=== PATIENT | male | born 1980 | race African-American/Black ===

== ENCOUNTER 2020-07-16 12:54 | Emergency (ER) | payer MEDICAID ==
[~2020-07-16] VITALS: Ht 182.9 cm; Wt 136.1 kg
[2020-07-16] MEDS ORDERED: FUROSEMIDE 20 MG TAB PO ONE (17:45)
[2020-07-16 17:54] VITALS: BP 122/79
== END 2020-07-16 18:05 | disposition home or self-care (01) ==
LOC: ER 12:54 → EDBD 12:54 → ER 18:05
DX: R60.0 Localized edema (principal); K21.9 Gastro-esophageal reflux disease without esophagitis; I10 Essential (primary) hypertension
CPT/HCPCS: 93970

== ENCOUNTER 2020-12-27 15:11 | Emergency (ER) | payer MEDICAID ==
[~2020-12-27] VITALS: Ht 167.6 cm; Wt 181.4 kg
[2020-12-27 16:09] VITALS: BP 145/75
[2020-12-27] MEDS ORDERED: NEOMYCIN-BACITRACIN-POLYM 15GM TOP OINT TOP ONE (20:01)
[2020-12-27] MEDS ORDERED: NEOMYCIN-BACITRACIN-POLYM UNITDOSE PKG TOP OINT TOP ONE (20:15)
== END 2020-12-27 20:40 | disposition home or self-care (01) ==
LOC: ER 15:11
DX: S93.401A Sprain of unspecified ligament of right ankle, initial encounter (principal); E66.01 Morbid (severe) obesity due to excess calories; Z68.44 Body mass index [BMI] 60.0-69.9, adult; I10 Essential (primary) hypertension; K21.9 Gastro-esophageal reflux disease without esophagitis; X58.XXXA Exposure to other specified factors, initial encounter; Y93.89 Activity, other specified; Y92.89 Other specified places as the place of occurrence of the external cause; Y99.8 Other external cause status
CPT/HCPCS: 73610

== ENCOUNTER 2021-07-24 18:03 | Inpatient (IN) | payer MEDICAID ==
[~2021-07-24] VITALS: Ht 182.9 cm; Wt 146.5 kg
[2021-07-24 20:34] LABS: Basophils # (auto) 0 10 ^3/uL (0-0.2); Basophils % (auto) 0.3 % (0.0-2.0); Hematocrit 24.5 % (41.0-53.0); Hemoglobin 8.1 g/dL (13.5-17.5); Mean Corpuscular Hgb Conc. 33.2 g/dL (32.0-36.0); Monocytes # (auto) 0.7 10 ^3/uL (0-1.3); Red Cell Distribution Width 15.1 % (11.8-14.3)
[2021-07-24 20:36] LABS: Eosinophils # (auto) 1.5 10 ^3/uL (0-0.8); Eosinophils % (auto) 14.7 % (0.0-7.0); Lymphocytes # (auto) 1.3 10 ^3/uL (0.4-5.4); Lymphocytes % (auto) 12.6 % (10.0-50.0); Mean Corpuscular Hemoglobin 26.5 pg (28.0-32.0); Mean Corpuscular Volume 79.7 fL (80.0-100.0); Monocytes % (auto) 6.6 % (0.0-12.0); Neutrophils # (auto) 6.5 10 ^3/uL (1.6-8.6); Neutrophils % (auto) 65.8 % (37.0-80.0); Nucleated Red Blood Cells % 0.2 %; Red Blood Cells 3.07 10^6/uL (4.5-5.90); White Blood Cell 9.9 10^3/uL (4.4-10.8)
[2021-07-24 20:55] LABS: Albumin 2.8 g/dL (3.4-5.0); Calcium 8.7 mg/dL (8.5-10.1); Magnesium 2.3 mg/dL (1.6-2.6)
[2021-07-24 20:58] LABS: BUN/Creatinine Ratio 10.6; Bilirubin, Total 0.3 mg/dL (0.2-1.0); Total Protein 11.7 g/dL (6.4-8.2)
[2021-07-24] MEDS ORDERED: SODIUM CHLORIDE 0.9% 1,000 ML IV ONE (21:15)
[2021-07-24] MEDS ORDERED: MORPHINE SULFATE INJ 2 MG/ml SYRG IV PRN ×2 (23:00)
[2021-07-24] MEDS ORDERED: HYDROcodone-ACET 5/325MG TAB PO PRN (23:00)
[2021-07-24] MEDS ORDERED: NOREPINEPHRINE 8 MG/250ML KIT 250 ML IV SCH (23:00)
[2021-07-24] MEDS ORDERED: ACETAMINOPHEN 325 MG TAB PO PRN ×2 (23:00)
[2021-07-24] MEDS ORDERED: NITROGLYCERIN 0.4 MG SL TAB SL PRN (23:00)
[2021-07-25] MEDS: SODIUM CHLORIDE 0.9% 1,000 ML IV SCH ×6 (01:00→23:53)
[2021-07-25] MEDS: ENOXAPARIN SOD 40 MG/0.4 ML SYRINGE SC SCH ×2 (10:15→22:40)
[2021-07-25] MEDS: PIPERACILLIN-TAZOB 3.375GM 100 ML IV SCH ×2 (12:39→17:49)
[2021-07-25 14:07] LABS: Hematocrit 27.5 % (41.0-53.0); Hemoglobin 9.2 g/dL (13.5-17.5); Mean Corpuscular Hemoglobin 26.8 pg (28.0-32.0); Mean Corpuscular Hgb Conc. 33.3 g/dL (32.0-36.0); Mean Corpuscular Volume 80.7 fL (80.0-100.0); Red Blood Cells 3.41 10^6/uL (4.5-5.90); Red Cell Distribution Width 15.3 % (11.8-14.3); White Blood Cell 10.1 10^3/uL (4.4-10.8)
[2021-07-25 14:26] LABS: Albumin 3.1 g/dL (3.4-5.0); BUN/Creatinine Ratio 14.7; Calcium 9.7 mg/dL (8.5-10.1); Potassium 5.1 mmol/L (3.5-5.1)
[2021-07-25 14:37] LABS: Bilirubin, Total 0.4 mg/dL (0.2-1.0); Total Protein 12.7 g/dL (6.4-8.2)
[2021-07-25 15:00] LABS: Band Neutrophils % (manual) 0; Basophils % (manual) 0 (0.0-2.0); Blast Cells 0; Metamyelocytes % 0; Myelocytes % 0; Promyelocytes % 0; Reactive Lymphocytes 0
[2021-07-25] MEDS ORDERED: SODIUM CHLORIDE 0.9% 1,000 ML IV SCH (15:15)
[2021-07-25 16:31] LABS: Eosinophils % (manual) 17 (0-7); Lymphocytes % (manual) 10 (10.0-50.0); Monocytes % (manual) 4 (0-12)
[2021-07-25 16:46] VITALS: BP 103/61
[2021-07-25 17:50] VITALS: BP 103/61
[2021-07-25 20:30] VITALS: BP 103/61
[2021-07-25 22:00] VITALS: BP 99/46
[2021-07-26] MEDS: PIPERACILLIN-TAZOB 3.375GM 100 ML IV SCH ×5 (00:03→23:28)
[2021-07-26] MEDS: SODIUM CHLORIDE 0.9% 1,000 ML IV SCH ×2 (07:30→15:30)
[2021-07-26 07:56] LABS: BUN/Creatinine Ratio 20.6; Calcium 9.6 mg/dL (8.5-10.1); Phosphorus 5.5 mg/dL (2.5-4.90)
[2021-07-26 09:00] VITALS: BP 132/73
[2021-07-26] MEDS: ZINC SULFATE 220mg CAP or TAB PO SCH (11:25)
[2021-07-26] MEDS: ASCORBIC ACID 1,000 MG TAB PO SCH (11:26)
[2021-07-26] MEDS: ENOXAPARIN SOD 40 MG/0.4 ML SYRINGE SC SCH ×2 (11:27→22:16)
[2021-07-26] MEDS: PANTOPRAZOLE 40 MG/10 ML VIAL INJ IV SCH (12:23)
[2021-07-26] MEDS: CHOLECALCIFEROL (VITD3) 2,000 UNIT CAP/TAB PO SCH (12:24)
[2021-07-26 22:00] VITALS: BP 96/41
[2021-07-27] MEDS: SODIUM CHLORIDE 0.9% 1,000 ML IV SCH ×4 (00:07→23:30)
[2021-07-27 04:55] VITALS: BP 87/41
[2021-07-27] MEDS: PIPERACILLIN-TAZOB 3.375GM 100 ML IV SCH ×4 (05:38→23:43)
[2021-07-27 07:04] LABS: % Iron Saturation 26.5 % (20-55)
[2021-07-27 07:09] LABS: Ferritin 527.7 ng/mL (10-322)
[2021-07-27 09:00] VITALS: BP 132/57
[2021-07-27 09:11] LABS: Basophils # (auto) 0.1 10 ^3/uL (0-0.2); Nucleated Red Blood Cells % 0.1 %
[2021-07-27 09:13] LABS: Basophils % (auto) 0.9 % (0.0-2.0); Eosinophils # (auto) 1.2 10 ^3/uL (0-0.8); Eosinophils % (auto) 14.6 % (0.0-7.0); Hematocrit 25.2 % (41.0-53.0); Hemoglobin 8.2 g/dL (13.5-17.5); Lymphocytes # (auto) 1.2 10 ^3/uL (0.4-5.4); Lymphocytes % (auto) 13.8 % (10.0-50.0); Mean Corpuscular Hemoglobin 26.4 pg (28.0-32.0); Mean Corpuscular Hgb Conc. 32.4 g/dL (32.0-36.0); Mean Corpuscular Volume 81.4 fL (80.0-100.0); Monocytes # (auto) 0.6 10 ^3/uL (0-1.3); Monocytes % (auto) 7.7 % (0.0-12.0); Neutrophils # (auto) 5.3 10 ^3/uL (1.6-8.6); Red Blood Cells 3.09 10^6/uL (4.5-5.90); Red Cell Distribution Width 15.2 % (11.8-14.3); White Blood Cell 8.4 10^3/uL (4.4-10.8)
[2021-07-27] MEDS: ENOXAPARIN SOD 40 MG/0.4 ML SYRINGE SC SCH ×2 (09:54→22:28)
[2021-07-27] MEDS: PANTOPRAZOLE 40 MG/10 ML VIAL INJ IV SCH (09:54)
[2021-07-27] MEDS: ZINC SULFATE 220mg CAP or TAB PO SCH (09:55)
[2021-07-27] MEDS: CHOLECALCIFEROL (VITD3) 2,000 UNIT CAP/TAB PO SCH (09:55)
[2021-07-27] MEDS: ASCORBIC ACID 1,000 MG TAB PO SCH (09:56)
[2021-07-27] MEDS: ASPirin 81 mg TAB PO SCH (09:56)
[2021-07-27 13:00] VITALS: BP 143/85
[2021-07-27 16:57] LABS: BUN/Creatinine Ratio 29.9; Potassium 4.8 mmol/L (3.5-5.1)
[2021-07-27 17:00] VITALS: BP 146/91
[2021-07-27 22:00] VITALS: BP 133/71
[2021-07-28 05:00] VITALS: BP 126/70
[2021-07-28] MEDS: PIPERACILLIN-TAZOB 3.375GM 100 ML IV SCH ×3 (05:54→18:23)
[2021-07-28] MEDS: SODIUM CHLORIDE 0.9% 1,000 ML IV SCH (06:27)
[2021-07-28 07:28] LABS: Chloride 113 mmol/L (98-107); Potassium 5.1 mmol/L (3.5-5.1); Sodium 139 mmol/L (136-145)
[2021-07-28 07:35] LABS: Alanine Aminotransferase 21 U/L (16-61); Albumin 2.6 g/dL (3.4-5.0); Alkaline Phosphatase 43 U/L (45-117); Anion Gap 6 (5-15); Aspartate Aminotransferase 15 U/L (15-37); BUN/Creatinine Ratio 34.7; Bilirubin, Direct < 0.1 mg/dL (0-0.2); Bilirubin, Total 0.2 mg/dL (0.2-1.0); Blood Urea Nitrogen 60 mg/dL (7-18); Calcium 9.2 mg/dL (8.5-10.1); Carbon Dioxide 20 mmol/L (21-32); Creatine Kinase IFCC 56 U/L (39-308); GFR African American 56 mL/min; GFR Non-African American 46 mL/min; Glucose 104 mg/dL (74-106); Phosphorus 3.6 mg/dL (2.5-4.90); Total Protein 10.9 g/dL (6.4-8.2)
[2021-07-28 08:17] LABS: Uric Acid 11.9 mg/dL (3.5-7.2)
[2021-07-28 09:00] VITALS: BP 140/92
[2021-07-28] MEDS: ASCORBIC ACID 1,000 MG TAB PO SCH (10:00)
[2021-07-28] MEDS: ASPirin 81 mg TAB PO SCH (10:00)
[2021-07-28] MEDS: PANTOPRAZOLE 40 MG/10 ML VIAL INJ IV SCH (10:00)
[2021-07-28] MEDS: ENOXAPARIN SOD 40 MG/0.4 ML SYRINGE SC SCH ×2 (10:00→21:55)
[2021-07-28] MEDS: CHOLECALCIFEROL (VITD3) 2,000 UNIT CAP/TAB PO SCH (10:00)
[2021-07-28] MEDS: ZINC SULFATE 220mg CAP or TAB PO SCH (10:00)
[2021-07-28 13:00] VITALS: BP 135/95
[2021-07-28 13:06] LABS: Immunoglobulin G, Serum 4805 mg/dL (603-1613)
[2021-07-28] MEDS: SOD CHL 0.45% 1,000 ML IV SCH (16:15)
[2021-07-28 16:45] VITALS: BP 140/85
[2021-07-28 22:00] VITALS: BP 156/88
[2021-07-29] MEDS: PIPERACILLIN-TAZOB 3.375GM 100 ML IV SCH ×4 (00:07→18:24)
[2021-07-29] MEDS: SOD CHL 0.45% 1,000 ML IV SCH ×2 (01:18→09:24)
[2021-07-29 05:00] VITALS: BP 111/58
[2021-07-29 09:03] VITALS: BP 147/87
[2021-07-29] MEDS: ASCORBIC ACID 1,000 MG TAB PO SCH (09:23)
[2021-07-29] MEDS: ASPirin 81 mg TAB PO SCH (09:23)
[2021-07-29] MEDS: PANTOPRAZOLE 40 MG/10 ML VIAL INJ IV SCH (09:23)
[2021-07-29] MEDS: ZINC SULFATE 220mg CAP or TAB PO SCH (09:23)
[2021-07-29] MEDS: CHOLECALCIFEROL (VITD3) 2,000 UNIT CAP/TAB PO SCH (09:24)
[2021-07-29] MEDS: ENOXAPARIN SOD 40 MG/0.4 ML SYRINGE SC SCH ×2 (09:24→21:21)
[2021-07-29 17:36] VITALS: BP 134/73
[2021-07-29 20:00] VITALS: BP 130/94
[2021-07-29 22:00] VITALS: BP 130/94
[2021-07-30] MEDS: PIPERACILLIN-TAZOB 3.375GM 100 ML IV SCH ×4 (00:11→18:15)
[2021-07-30] MEDS: SOD CHL 0.45% 1,000 ML IV SCH ×2 (00:12→09:38)
[2021-07-30 05:00] VITALS: BP 102/57
[2021-07-30 08:15] VITALS: BP 135/98
[2021-07-30 09:00] VITALS: BP 135/98
[2021-07-30 09:40] LABS: Basophils # (auto) 0.1 10 ^3/uL (0-0.2); Hemoglobin 8.4 g/dL (13.5-17.5); Monocytes # (auto) 0.6 10 ^3/uL (0-1.3)
[2021-07-30] MEDS: ZINC SULFATE 220mg CAP or TAB PO SCH (09:40)
[2021-07-30] MEDS: CHOLECALCIFEROL (VITD3) 2,000 UNIT CAP/TAB PO SCH (09:40)
[2021-07-30] MEDS: ASPirin 81 mg TAB PO SCH (09:40)
[2021-07-30] MEDS: PANTOPRAZOLE 40 MG/10 ML VIAL INJ IV SCH (09:40)
[2021-07-30] MEDS: ASCORBIC ACID 1,000 MG TAB PO SCH (09:40)
[2021-07-30] MEDS: ENOXAPARIN SOD 40 MG/0.4 ML SYRINGE SC SCH ×2 (09:41→21:43)
[2021-07-30 09:42] LABS: Basophils % (auto) 1.1 % (0.0-2.0); Eosinophils # (auto) 1.3 10 ^3/uL (0-0.8); Eosinophils % (auto) 15.1 % (0.0-7.0); Hematocrit 25.3 % (41.0-53.0); Lymphocytes # (auto) 1.2 10 ^3/uL (0.4-5.4); Lymphocytes % (auto) 13.9 % (10.0-50.0); Mean Corpuscular Hemoglobin 27.1 pg (28.0-32.0); Mean Corpuscular Hgb Conc. 33.2 g/dL (32.0-36.0); Mean Corpuscular Volume 81.6 fL (80.0-100.0); Neutrophils # (auto) 5.4 10 ^3/uL (1.6-8.6); Neutrophils % (auto) 62.9 % (37.0-80.0); Nucleated Red Blood Cells % 0.1 %; Red Cell Distribution Width 15.8 % (11.8-14.3); White Blood Cell 8.5 10^3/uL (4.4-10.8)
[2021-07-30 09:59] LABS: Albumin 2.7 g/dL (3.4-5.0); Calcium 8.8 mg/dL (8.5-10.1); Potassium 4.5 mmol/L (3.5-5.1)
[2021-07-30 10:03] LABS: BUN/Creatinine Ratio 15.3; Bilirubin, Total 0.2 mg/dL (0.2-1.0); Total Protein 11.2 g/dL (6.4-8.2)
[2021-07-30 17:00] VITALS: BP 154/89
[2021-07-30 22:00] VITALS: BP 152/83
[2021-07-31] VITALS (8 sets, daily range): BP systolic 108–150; BP diastolic 71–98
[2021-07-31] MEDS: PIPERACILLIN-TAZOB 3.375GM 100 ML IV SCH ×4 (00:20→18:53)
[2021-07-31] MEDS: PANTOPRAZOLE 40 MG/10 ML VIAL INJ IV SCH (10:11)
[2021-07-31] MEDS: CHOLECALCIFEROL (VITD3) 2,000 UNIT CAP/TAB PO SCH (10:12)
[2021-07-31] MEDS: ASPirin 81 mg TAB PO SCH (10:12)
[2021-07-31] MEDS: ASCORBIC ACID 1,000 MG TAB PO SCH (10:12)
[2021-07-31] MEDS: ZINC SULFATE 220mg CAP or TAB PO SCH (10:12)
[2021-07-31] MEDS: ENOXAPARIN SOD 40 MG/0.4 ML SYRINGE SC SCH ×2 (10:12→22:03)
[2021-08-01] VITALS (8 sets, daily range): BP systolic 124–160; BP diastolic 76–100
[2021-08-01] MEDS: PIPERACILLIN-TAZOB 3.375GM 100 ML IV SCH ×4 (00:25→17:55)
[2021-08-01] MEDS: ENOXAPARIN SOD 40 MG/0.4 ML SYRINGE SC SCH ×2 (10:00→21:58)
[2021-08-01] MEDS: PANTOPRAZOLE 40 MG/10 ML VIAL INJ IV SCH (10:34)
[2021-08-01] MEDS: ZINC SULFATE 220mg CAP or TAB PO SCH (10:34)
[2021-08-01] MEDS: ASPirin 81 mg TAB PO SCH (10:34)
[2021-08-01] MEDS: ASCORBIC ACID 1,000 MG TAB PO SCH (10:35)
[2021-08-01] MEDS: CHOLECALCIFEROL (VITD3) 2,000 UNIT CAP/TAB PO SCH (10:35)
[2021-08-01 11:58] LABS: INR 1.1 (0.9-1.15); Partial Thromboplastin Time 30.2 sec (23.6-33.0)
[2021-08-02] MEDS: PIPERACILLIN-TAZOB 3.375GM 100 ML IV SCH ×5 (00:15→23:52)
[2021-08-02 05:00] VITALS: BP 102/58
[2021-08-02] MEDS: CHOLECALCIFEROL (VITD3) 2,000 UNIT CAP/TAB PO SCH (08:21)
[2021-08-02] MEDS: ZINC SULFATE 220mg CAP or TAB PO SCH (08:21)
[2021-08-02] MEDS: ENOXAPARIN SOD 40 MG/0.4 ML SYRINGE SC SCH ×2 (08:21→21:56)
[2021-08-02] MEDS: ASPirin 81 mg TAB PO SCH (08:21)
[2021-08-02] MEDS: PANTOPRAZOLE 40 MG/10 ML VIAL INJ IV SCH (08:21)
[2021-08-02] MEDS: ASCORBIC ACID 1,000 MG TAB PO SCH (08:21)
[2021-08-02 09:00] VITALS: BP 130/97
[2021-08-02 13:00] VITALS: BP 136/79
[2021-08-02 16:07] LABS: Basophils # (auto) 0.1 10 ^3/uL (0-0.2); Basophils % (auto) 1.4 % (0.0-2.0); Eosinophils # (auto) 0.9 10 ^3/uL (0-0.8); Eosinophils % (auto) 13.8 % (0.0-7.0); Hematocrit 24.1 % (41.0-53.0); Hemoglobin 7.7 g/dL (13.5-17.5); Lymphocytes # (auto) 1.3 10 ^3/uL (0.4-5.4); Lymphocytes % (auto) 19.4 % (10.0-50.0); Mean Corpuscular Volume 81.4 fL (80.0-100.0); Monocytes # (auto) 0.5 10 ^3/uL (0-1.3); Monocytes % (auto) 7.4 % (0.0-12.0); Neutrophils # (auto) 3.8 10 ^3/uL (1.6-8.6); Nucleated Red Blood Cells % 0.1 %; Red Blood Cells 2.97 10^6/uL (4.5-5.90); Red Cell Distribution Width 15.4 % (11.8-14.3); White Blood Cell 6.6 10^3/uL (4.4-10.8)
[2021-08-02 16:24] LABS: BUN/Creatinine Ratio 12.5; Calcium 8.9 mg/dL (8.5-10.1)
[2021-08-02 17:18] VITALS: BP 141/90
[2021-08-02 22:00] VITALS: BP 132/83
[2021-08-03 05:00] VITALS: BP 125/73
[2021-08-03] MEDS: PIPERACILLIN-TAZOB 3.375GM 100 ML IV SCH ×2 (05:15→13:15)
[2021-08-03 08:00] VITALS: BP 129/82
[2021-08-03 09:00] VITALS: BP 129/82
[2021-08-03] MEDS: PANTOPRAZOLE 40 MG/10 ML VIAL INJ IV SCH (10:15)
[2021-08-03] MEDS: ASCORBIC ACID 1,000 MG TAB PO SCH (10:15)
[2021-08-03] MEDS: CHOLECALCIFEROL (VITD3) 2,000 UNIT CAP/TAB PO SCH (10:15)
[2021-08-03] MEDS: ASPirin 81 mg TAB PO SCH (10:15)
[2021-08-03] MEDS: ENOXAPARIN SOD 40 MG/0.4 ML SYRINGE SC SCH (10:15)
[2021-08-03] MEDS: ZINC SULFATE 220mg CAP or TAB PO SCH (10:15)
== END 2021-08-03 17:36 | disposition home health service (06) | DRG 137 ==
LOC: ER 18:03 → EDBD 18:03 → TELE 22:56 → TELE-CENTR 07-25 11:02
PROVIDERS: ADMIT Internal Medicine; ATTEND Internal Medicine
DX: U07.1 COVID-19 (principal); J96.01 Acute respiratory failure with hypoxia; J12.82 Pneumonia due to coronavirus disease 2019; G92.8 Other toxic encephalopathy; N17.9 Acute kidney failure, unspecified; D69.6 Thrombocytopenia, unspecified; I95.9 Hypotension, unspecified; B88.9 Infestation, unspecified; I50.9 Heart failure, unspecified; K21.9 Gastro-esophageal reflux disease without esophagitis; R59.0 Localized enlarged lymph nodes; D64.9 Anemia, unspecified; D75.839 Thrombocytosis, unspecified; E66.01 Morbid (severe) obesity due to excess calories; G40.909 Epilepsy, unspecified, not intractable, without status epilepticus; F79 Unspecified intellectual disabilities; J98.11 Atelectasis; L08.9 Local infection of the skin and subcutaneous tissue, unspecified; Z78.9 Other specified health status; Z87.442 Personal history of urinary calculi; Z90.49 Acquired absence of other specified parts of digestive tract; Z68.42 Body mass index [BMI] 45.0-49.9, adult
CPT/HCPCS: 36415; 71045; 71250; 74176; 76775; 76942; 80048; 80053; 80069; 80076; 82550; 82607; 82728; 82784; 83540; 83550; 83615; 83735; 83883; 84100; 84484; 84550; 85007; 85025; 85027; 85045; 85049; 85610; 85730; 86038; 86334; 86335; 93005; 93306; 94640; 96361; 96374; 99291; C9113; G0378; J2543

== ENCOUNTER 2023-10-18 18:16 | Inpatient (IN) | payer MEDICAID ==
[~2023-10-18] VITALS: Ht 165.1 cm; Wt 164.7 kg
[~2023-10-18 18:16] MED LIST: AMOX500T3 PO
[2023-10-18 19:13] LABS: Eosinophils # (auto) 0.4 10 ^3/uL (0-0.8); Hemoglobin 10.8 g/dL (13.5-17.5); Lymphocytes # (auto) 1.3 10 ^3/uL (0.4-5.4); Mean Corpuscular Volume 80.3 fL (80.0-100.0); Neutrophils # (auto) 7.3 10 ^3/uL (1.6-8.6); White Blood Cell 9.6 10^3/uL (4.4-10.8)
[2023-10-18 19:15] LABS: Basophils # (auto) 0.1 10 ^3/uL (0-0.2); Basophils % (auto) 0.8 % (0.0-2.0); Eosinophils % (auto) 3.9 % (0.0-7.0); Hematocrit 33.4 % (41.0-53.0); Lymphocytes % (auto) 13.3 % (10.0-50.0); Mean Corpuscular Hemoglobin 26.1 pg (28.0-32.0); Mean Corpuscular Hgb Conc. 32.4 g/dL (32.0-36.0); Monocytes # (auto) 0.6 10 ^3/uL (0-1.3); Monocytes % (auto) 5.9 % (0.0-12.0); Neutrophils % (auto) 76.1 % (37.0-80.0); Nucleated Red Blood Cells % 0.1 %; Platelet Count (auto) 649 10^3/uL (140-450); Red Blood Cells 4.16 10^6/uL (4.5-5.90); Red Cell Distribution Width 14.5 % (11.8-14.3)
[2023-10-18 19:26] LABS: Alanine Aminotransferase 30 U/L (7-40); Albumin 4.1 g/dL (3.2-4.8); Alkaline Phosphatase 71 U/L (46-116); Anion Gap 7 (5-15); Aspartate Aminotransferase 21 U/L (13-40); BUN/Creatinine Ratio 14.8 (10.0-20.0); Blood Urea Nitrogen 18 mg/dL (9-23); Calcium 9.4 mg/dL (8.7-10.4); Carbon Dioxide 29 mmol/L (20-30); Chloride 104 mmol/L (98-107); Glucose 114 mg/dL (74-106); Lipase 39 U/L (12-53); Potassium 3.2 mmol/L (3.5-5.1); Sodium 140 mmol/L (136-145)
[2023-10-18 19:27] LABS: Bilirubin, Total 0.4 mg/dL (0.2-1.0); Total Protein 8.8 g/dL (5.7-8.2)
[2023-10-18] MEDS: SODIUM CHLORIDE 0.9% 1,000 ML IV ONE (20:31)
[2023-10-18] MEDS: KETOROLAC TROMETH 30 MG/ML 1ML VIAL IV ONE (20:43)
[2023-10-18 23:09] LABS: Urine Blood Negative /uL (Negative); Urine Clarity Turbid (Clear); Urine Color Yellow (Yellow); Urine Protein, UAD 1+ (Negative); Urine Specific Gravity 1.024 (1.001-1.035); Urine Urobilinogen 2 mg/dL (Negative); Urine pH 5.5 (5.0-9.0)
[2023-10-19] MEDS ORDERED: MORPHINE SULFATE INJ 2 MG/ml SYRG IV PRN ×2 (03:00→04:30)
[2023-10-19] MEDS ORDERED: HYDROcodone-ACET 5/325MG TAB PO PRN (03:00)
[2023-10-19] MEDS ORDERED: DOCUSATE SOD 100 MG CAP PO PRN (03:00)
[2023-10-19] MEDS ORDERED: ACETAMINOPHEN 325 MG TAB PO PRN (03:00)
[2023-10-19] MEDS ORDERED: ONDANSETRON HCL 4 MG/2 ML VIAL IV PRN (03:00)
[2023-10-19] MEDS: PANTOPRAZOLE 40 MG/10 ML VIAL INJ IV ONE (03:55)
[2023-10-19] MEDS: metroNIDAZOLE 500MG/100ML 100 ML IV ONE (03:56)
[2023-10-19] MEDS ORDERED: NITROGLYCERIN 0.4 MG SL TAB SL PRN (04:30)
[2023-10-19 04:52] LABS: Basophils # (auto) 0.1 10 ^3/uL (0-0.2); Basophils % (auto) 0.6 % (0.0-2.0); Eosinophils # (auto) 0.4 10 ^3/uL (0-0.8); Monocytes # (auto) 0.7 10 ^3/uL (0-1.3); Nucleated Red Blood Cells % 0.1 %; Red Cell Distribution Width 14.7 % (11.8-14.3)
[2023-10-19 04:54] LABS: Eosinophils % (auto) 4.5 % (0.0-7.0); Hematocrit 31.8 % (41.0-53.0); Hemoglobin 10.1 g/dL (13.5-17.5); Lymphocytes # (auto) 1.1 10 ^3/uL (0.4-5.4); Lymphocytes % (auto) 12.5 % (10.0-50.0); Mean Corpuscular Hemoglobin 25.6 pg (28.0-32.0); Mean Corpuscular Hgb Conc. 31.7 g/dL (32.0-36.0); Mean Corpuscular Volume 80.8 fL (80.0-100.0); Neutrophils # (auto) 6.7 10 ^3/uL (1.6-8.6); Neutrophils % (auto) 74.4 % (37.0-80.0); Platelet Count (auto) 622 10^3/uL (140-450); Red Blood Cells 3.94 10^6/uL (4.5-5.90); White Blood Cell 9.1 10^3/uL (4.4-10.8)
[2023-10-19 05:06] LABS: Alanine Aminotransferase 24 U/L (7-40); Albumin 4.1 g/dL (3.2-4.8); Alkaline Phosphatase 63 U/L (46-116); Anion Gap 8 (5-15); Aspartate Aminotransferase 16 U/L (13-40); BUN/Creatinine Ratio 12.1 (10.0-20.0); Bilirubin, Total 0.4 mg/dL (0.2-1.0); Blood Urea Nitrogen 19 mg/dL (9-23); Calcium 9.3 mg/dL (8.7-10.4); Carbon Dioxide 29 mmol/L (20-30); Chloride 105 mmol/L (98-107); Glucose 100 mg/dL (74-106); Potassium 2.9 mmol/L (3.5-5.1); Sodium 142 mmol/L (136-145); Total Protein 9.1 g/dL (5.7-8.2)
[2023-10-19] MEDS: levoFLOXacin 500MG 100 ML IV ONE (05:23)
[2023-10-19] MEDS: SODIUM CHLOR 0.9% PF (SALINE LOCK) 10ML VIAL/SYR IV SCH (05:23)
[2023-10-19 07:55] VITALS: O2SAT 97
[2023-10-19] MEDS: ENOXAPARIN SOD 40 MG/0.4 ML SYRINGE SC SCH (09:13)
[2023-10-19] MEDS: POTASSIUM CHL 20MEQ/100ML 100 ML IV SCH (09:39)
[2023-10-19] MEDS: metroNIDAZOLE 500MG/100ML 100 ML IV SCH (14:00)
[2023-10-19 16:43] VITALS: BP 130/69; PULSE 104; RESP 18; TEMP 98.8; O2SAT 93
[2023-10-19 17:10] VITALS: PULSE 104; RESP 18
[2023-10-19 21:00] VITALS: BP 136/88; PULSE 89; RESP 18; TEMP 97.6; O2SAT 98
[2023-10-19] MEDS: cefTRIAXone 1GM/50ML D5W 50 ML IV SCH (21:02)
[2023-10-20] VITALS (7 sets, daily range): BP systolic 127–162; BP diastolic 63–107; PULSE 91–102; RESP 17–18; TEMP 97.8–98.2; O2SAT 90–99
[2023-10-20 06:40] LABS: Basophils # (auto) 0 10 ^3/uL (0-0.2); Basophils % (auto) 0.5 % (0.0-2.0); Eosinophils # (auto) 0.4 10 ^3/uL (0-0.8); Lymphocytes # (auto) 0.9 10 ^3/uL (0.4-5.4); Neutrophils # (auto) 5.8 10 ^3/uL (1.6-8.6); Red Blood Cells 3.77 10^6/uL (4.5-5.90); White Blood Cell 7.7 10^3/uL (4.4-10.8)
[2023-10-20 06:42] LABS: Hematocrit 30.9 % (41.0-53.0); Hemoglobin 9.9 g/dL (13.5-17.5); Lymphocytes % (auto) 11.7 % (10.0-50.0); Mean Corpuscular Hemoglobin 26.1 pg (28.0-32.0); Mean Corpuscular Hgb Conc. 31.9 g/dL (32.0-36.0); Mean Corpuscular Volume 81.8 fL (80.0-100.0); Monocytes # (auto) 0.6 10 ^3/uL (0-1.3); Monocytes % (auto) 7.2 % (0.0-12.0); Neutrophils % (auto) 75.6 % (37.0-80.0); Platelet Count (auto) 631 10^3/uL (140-450); Red Cell Distribution Width 14.9 % (11.8-14.3)
[2023-10-20 07:15] LABS: Alanine Aminotransferase 25 U/L (7-40); Albumin 3.9 g/dL (3.2-4.8); Alkaline Phosphatase 62 U/L (46-116); Anion Gap 4 (5-15); BUN/Creatinine Ratio 20.6 (10.0-20.0); Blood Urea Nitrogen 20 mg/dL (9-23); Calcium 9.6 mg/dL (8.7-10.4); Carbon Dioxide 31 mmol/L (20-30); Chloride 108 mmol/L (98-107); Glucose 85 mg/dL (74-106); Potassium 3.4 mmol/L (3.5-5.1); Sodium 143 mmol/L (136-145)
[2023-10-20 07:16] LABS: Aspartate Aminotransferase 19 U/L (13-40); Bilirubin, Total 0.4 mg/dL (0.2-1.0); Total Protein 8.6 g/dL (5.7-8.2)
[2023-10-20] MEDS: PANTOPRAZOLE 40 MG/10 ML VIAL INJ IV SCH (10:02)
[2023-10-20] MEDS: POTASSIUM EFFERVESENT TAB 25 MEQ PO ONE (10:03)
[2023-10-21 05:00] VITALS: BP 137/72; PULSE 88; RESP 18; TEMP 98; O2SAT 94
[2023-10-21 08:00] VITALS: BP 141/76; PULSE 90; RESP 20; TEMP 98.2; O2SAT 94
[2023-10-21] MEDS ORDERED: METR-344 PO (10:24)
[2023-10-21] MEDS ORDERED: PANT40T PO (10:24)
[2023-10-21] MEDS ORDERED: LEVO500T91 PO (10:24)
[2023-10-21 12:00] VITALS: BP 146/104; PULSE 97; RESP 20; TEMP 97.4; O2SAT 95
[2023-10-21] MEDS ORDERED: IOHEXOL 300 MG/ML 100ML BOTTLE IJ ONE (12:46)
== END 2023-10-21 16:45 | disposition home or self-care (01) | DRG 249 ==
LOC: EDBD 18:16 → ER 18:16 → OVERFLOW 10-19 04:21 → EAST 10-19 16:30
PROVIDERS: ADMIT Nurse Practitioner Family; ATTEND Family Medicine
DX: K52.9 Noninfective gastroenteritis and colitis, unspecified (principal); N17.0 Acute kidney failure with tubular necrosis; I95.9 Hypotension, unspecified; Z68.44 Body mass index [BMI] 60.0-69.9, adult; D75.839 Thrombocytosis, unspecified; E66.01 Morbid (severe) obesity due to excess calories; K21.9 Gastro-esophageal reflux disease without esophagitis; E87.6 Hypokalemia; I10 Essential (primary) hypertension; R59.1 Generalized enlarged lymph nodes; Z90.49 Acquired absence of other specified parts of digestive tract; Z79.2 Long term (current) use of antibiotics; Z79.899 Other long term (current) drug therapy
CPT/HCPCS: 36415; 80053; 81003; 82306; 82607; 83690; 83735; 85025; 96361; 96374; 96375; 97110; 97116; 97163; 97530; G0378; J1885; J1956; J2470; J3480; J3490

== ENCOUNTER 2025-01-21 21:14 | Inpatient (IN) | payer MEDICAID ==
[~2025-01-21] VITALS: Ht 167.6 cm; Wt 160.2 kg
[~2025-01-21 21:14] MED LIST changes: +LEVO500T91 PO; +METR-344 PO; +PANT40T PO
--- NOTE | 2025-01-21 21:26 | ECG ---
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
--- NOTE | 2025-01-21 21:51 | ED.PDOC ---
HPI Comments 44-year-old male with a PMH of developmental delay, autism, hypertension, CHF (last echo 07/25/2021- HFpEF 73%), colitis, GERD, hypokalemia, COVID, nephrolithiasis, cholelithiasis, pancreatitis and morbid obesity has come to the emergency via EMS with complaints of chest pain. Patient reports that he had acute onset of chest pain 30 minutes after he ate dinner, occurring at rest, substernal, pressing, non-radiating, 5/10 in intensity, with no aggravating or relieving factors, for which he took 81 mg aspirin with no relief, prompting him to call the ambulance. EMS informed that patient's blood pressure was 165/121mmHg and he was given 0.4 mg nitroglycerin sublingual which decreased the BP to 154/84 mmHg and patient's pain to 3/10 in intensity. On inquiry, patient states that he has not taken his blood pressure medication (metoprolol) for 1 week and Lasix for the past 2 days as he ran out of medication. Patient denies any shortness of breath, nausea, vomiting, dizziness, palpitations, abdominal pain, GERD symptoms, urinary symptoms or change in bowel movements. On initial assessment, patient appears to be in mild distress, AOx4, blood pressure was 154/86 mmHg, HR 92, temp 98.6, respiratory rate 18, SpO2 96% RA. He requires further workup and management. Attestation note: Dr. Greene: I was the supervising attending for this ED encounter. Please see the resident's notes. I was available for questions and consultations. Differential diagnosis: Ddx include but not limitied to gastritis, musculoskeletal pain, radiculopathy, atypical chest pain, dissection, aneurysm, ACS, unstable angina, hiatal hernia, GERD, anxiety, costochondritis, PE, pneumothroax, neoplasm, cardiac ischemia, drug abuse, anemia. MDM: MDM: patient presented with the above HPI.--cardiac----workup was initiated. patient was found with the above mentioned diagnosis. the following medications were ordered: please refer to order lists of meds and tests obtained by myself Dr. Greene. Patient ED course and VS have been stabilized. Patient has been reassessed in the ED and remained in a stable condition. Pertinent incidental findings were discussed with the patient and/or family. Patient/family voices understanding and is agreeable with plan. Patient has been observed in the ED adequate length of time to insure improvement/stability. Escalation of care considered: Consideration of escalation to observation or admission Patient was given Lasix and Lopressor Patient was ADMITTED to the medicine team for further evaluation and treatment of their presentation. All the reports of any imaging studies that were ordered by myself were reviewed by myself. Chief Complaint: Chest Pain Time Seen by MD: 21:16 Primary Care Provider: RIP Kulkarni Notes: Medications, Allergies Allergies: Coded Allergies: NO KNOWN ALLERGIES (Unverified , 07/16/20) Home Meds Active Scripts Hydrocodone-Acetaminophen (Hydrocodone Bitartrate/AC 5-325 mg) 1 Tab Tab, 1 TAB PO QID PRN, #30 TAB Prov:WALT HERNANDEZ MD 01/23/25 Pantoprazole Sodium Sesquihydr (Pantoprazole Sodium) 40 Mg Tab, 40 MG PO BID, #30 TAB Prov:WALT HERNANDEZ MD 01/23/25 Pantoprazole Sodium Sesquihydr (Pantoprazole Sodium) 40 Mg Tab, 40 MG PO DAILY, #30 TAB Prov:WALT HERNANDEZ MD 10/21/23 Metronidazole (Flagyl) 500 Mg Tab, 1 TAB PO TID, #30 TAB Prov:WALT HERNANDEZ MD 10/21/23 Levofloxacin Hemihydrate (LEVAQUIN 500 MG) 500 Mg Tab, 1 TAB PO DAILY, #7 TAB Prov:WALT HERNANDEZ MD 10/21/23 Amoxicillin Trihydrate (Amoxicillin) 500 Mg Tab, 1 TAB PO BID for 10 Days, #20 TAB 0 Refills Prov:GEORGI CARRILLO ANODIZING LINE OPERATOR 10/13/23 Reported Medications Ergocalciferol (VITAMIN D 75335 UNIT) 50,[address] [place], [address] UNIT PO, CAP 01/22/25 Furosemide (Lasix) 40 Mg Tab, 40 MG PO DAILY, TAB 01/22/25 Potassium Chloride (POTASSIUM CHLORIDE CR) 10 Meq Tb, 10 MEQ PO BID, TAB 01/22/25 Information Source: Patient Mode of Arrival: EMS Severity: Mild Timing: Hours Duration: Since onset Prehospital treatment: None Location: Substernal Radiation: No Radiation Quality: Pressure Onset: At Rest Cardiac Risk Factors: HTN PE Risk Factors: None History of: Other (CHF) Modifying Factors: NTG Associated Signs and Symptoms: None Past Medical History PAST MEDICAL HISTORY: CHF, Gallstones, GERD, HTN, Kidney Stones Past Medical History (Other): Autism, Pancreatitis, COVID, colitis Surgical History: Cholecystectomy Family History Family History: Reviewed,noncontributory to illness Social History Smoker: Non-Smoker Alcohol: Denies ETOH Use Drugs: Denies Drug Use Lives In: Home Constitutional: denies: chills, diaphoresis, fatigue, fever, malaise, sweats, weakness, others EENTM: denies: blurred vision, double vision, ear bleeding, ear discharge, ear drainage, ear pain, ear ringing, eye pain, eye redness, hearing loss, mouth pain, mouth swelling, nasal discharge, nose bleeding, nose congestion, nose pain, photophobia, tearing, throat pain, throat swelling, voice changes, others Respiratory: denies: cough, hemoptysis, orthopnea, SOB at rest, shortness of breath, SOB with excertion, stridor, wheezing, others Cardiovascular: reports: chest pain; denies: dizzy spells, diaphoresis, Dyspnea on exertion, edema, irregular heart beat, left arm pain, lightheadedness, palpitations, PND, syncope, others Gastrointestinal: denies: abdomen distended, abdominal pain, blood streaked bowels, constipated, diarrhea, dysphagia, difficulty swallowing, hematemesis, melena, nausea, poor appetite, poor fluid intake, rectal bleeding, rectal pain, vomiting, others Genitourinary: denies: burning, dysuria, flank pain, frequency, hematuria, incontinence, penile discharge, penile sore, pain, testicle pain, testicle swelling, urgency, others Neurological: denies: dizziness, fainting, headache, left sided numbness, left sided weakness, numbness, paresthesia, pre-existing deficit, right sided numbness, right sided weakness, seizure, speech problems, tingling, tremors, weakness, others Musculoskeletal: denies: back pain, gout, joint pain, joint swelling, muscle pain, muscle stiffness, neck pain, others Integumetry: denies: bruises, change in color, change in hair/nails, dryness, laceration, lesions, lumps, rash, wounds, others Endocrine: denies: excessive hunger, excessive sweating, excessive thirst, excessive urination, flushing, intolerance to cold, intolerance to heat, unexplained weight gain, unexplained weight loss, others Psychiatric: denies: anxiety, bipolar disorder, depression, hopeless, panic disorder, schizophrenia, sleepless, suicidal, others Physical Exam General Appearance: Mild Distress, Obese HEENT: Other (patient maintains eye contact, no icterus, no pallor) Neck: Other (No JVD, no accessory muscles of respiration used, no enlarged lymph nodes on palpation) Respiratory: No Accessory Muscle Use, Other (No stridor, rhonchi, wheezing) Cardiovascular: No JVD, No Murmur, Regular Rate/Rhythm, Other (Mild tenderness on palpation of chest) Breast Exam: Normal, Other (No masses felt) Gastrointestinal: Non Tender, Other (No rebound guarding, no distention, no masses felt) Genitalia: Deferred Pelvic: Deferred Rectal: Deferred Extremities: Normal range of motion, No pedal edema, Other (Absence of pitting edema, no rashes, no bruising or scab seen) Neurologic: Other (No facial drooping, slight difficulty in understanding patient's speech) Cerebellar Function: Unable to Test Reflexes: Normal Skin: Normal Color, Other (Absence of any rashes, bruises, edema noted) Lymphatic: Other (No cervical adenopathy noted) Was a procedure done? Was a procedure done?: No CP Differential Dx Differential Diagnosis: Other Other Differential Diagnosis Hypertensive urgency, angina, pancreatitis, acute on chronic exacerbation of heart failure, musculoskeletal pain X-Ray, Labs, Meds, VS Vital Signs Date Time Temp Pulse Resp B/P (MAP) Pulse Ox O2 Delivery O2 Flow Rate FiO2 01/21/25 22:48 148/88 01/21/25 21:48 98.4 85 23 151/86 (107) 98 98.4 01/21/25 21:48 Room Air* 0 21 01/21/25 21:25 98.6 86 18 154/86 97 98.6 01/21/25 21:23 92 Lab Test 01/21/25 22:39 01/21/25 21:40 Range/Units Troponin I High Sensitivity 7 6 </=54 ng/L White Blood Count 7.8 4.4-10.8 10^3/uL Red Blood Count 4.38 L 4.5-5.90 10^6/uL Hemoglobin 11.5 L 13.5-17.5 g/dL Hematocrit 35.0 L 41.0-53.0 % Mean Corpuscular Volume 79.9 L 80.0-100.0 fL Mean Corpuscular Hemoglobin 26.3 L 28.0-32.0 pg Mean Corpuscular Hemoglobin Concent 32.9 32.0-36.0 g/dL Red Cell Distribution Width 14.1 11.8-14.3 % Platelet Count 453 H 140-450 10^3/uL Mean Platelet Volume 7.3 6.9-10.8 fL Neutrophils (%) (Auto) 65.7 37.0-80.0 % Lymphocytes (%) (Auto) 23.0 10.0-50.0 % Monocytes (%) (Auto) 7.0 0.0-12.0 % Eosinophils (%) (Auto) 3.5 0.0-7.0 % Basophils (%) (Auto) 0.8 0.0-2.0 % Neutrophils # (Auto) 5.1 1.6-8.6 10 ^3/uL Lymphocytes # (Auto) 1.8 0.4-5.4 10 ^3/uL Monocytes # (Auto) 0.5 0-1.3 10 ^3/uL Eosinophils # (Auto) 0.3 0-0.8 10 ^3/uL Basophils # (Auto) 0.1 0-0.2 10 ^3/uL Nucleated Red Blood Cells 0.2 % Sodium Level 136 136-145 mmol/L Potassium Level 3.9 3.5-5.1 mmol/L Chloride Level 102 98-107 mmol/L Carbon Dioxide Level 25 20-31 mmol/L Anion Gap 9 5-15 Blood Urea Nitrogen 14 9-23 mg/dL Creatinine 1.23 0.700-1.30 mg/dL Glomerular Filtration Rate Calc 73 >90 mL/min BUN/Creatinine Ratio 11.4 10.0-20.0 Serum Glucose 99 74-106 mg/dL Calcium Level 8.9 8.7-10.4 mg/dL Total Bilirubin 0.2 0.2-1.0 mg/dL Aspartate Amino Transferase (AST) 20 13-40 U/L Alanine Aminotransferase (ALT) 21 7-40 U/L Alkaline Phosphatase 84 46-116 U/L B-Type Natriuretic Peptide 21.98 0-100 pg/mL Total Protein 8.7 H 5.7-8.2 g/dL Albumin 3.8 3.2-4.8 g/dL Lipase 95 H 12-53 U/L Images Reviewed?: Images reviewed and evaluated by me Time of 1ST Reevaluation: 21:45 Reevaluation 1ST: Unchanged Patient Education/Counseling: Diagnosis, Treatment Family Education/Counseling: No Family Present SEPSIS Sepsis Screen Date sepsis recognized/suspect: Jan 21, 2025 Time Sepsis recognized/suspect: 2126 Recent Procedure: No On Antibiotic Therapy: No Respiratory Rate >20: No Heart Rate >90: No Temp<36 C (96.8 F) or >38.3 C: No SBP <90 or MAP <65 mmHG: No New Acute Mental Status Change: No Is the patient on CPAP, BIPAP,: No Physician Orders Chest Portable (01/21/25 21:21) Electrocardigram (01/21/25 21:21) Electrocardigram (01/21/25 22:21) Electrocardigram (01/22/25 00:21) Vital Signs Date Time Temp Pulse Resp B/P (MAP) Pulse Ox O2 Delivery O2 Flow Rate FiO2 01/21/25 22:48 148/88 01/21/25 21:48 98.4 85 23 151/86 (107) 98 98.4 01/21/25 21:48 Room Air* 0 21 01/21/25 21:25 98.6 86 18 154/86 97 98.6 01/21/25 21:23 92 Laboratory Tests Test 01/21/25 21:40 White Blood Count 7.8 10^3/uL (4.4-10.8) Departure 1 Departure Time of Disposition: 22:26 Impression: Primary Impression: Chest pain Additional Impressions: Noncompliance with medication regimen Hypertensive urgency Pulmonary vascular congestion Disposition: ADMITTED INPATIENT Admit to: Tele Condition: Guarded e-Prescriptions Hydrocodone-Acetaminophen (Hydrocodone Bitartrate/AC 5-325 mg) 1 Tab Tab 1 TAB PO QID PRN, #30 TAB Prov: WALT HERNANDEZ MD 01/23/25 Pantoprazole Sodium Sesquihydr (Pantoprazole Sodium) 40 Mg Tab 40 MG PO BID, #30 TAB Prov: WALT HERNANDEZ MD 01/23/25 Discharged With: Self Comments Patient came in with substernal pressing chest pain and hypertensive urgency (documented in the EMS, BP 165/121 mmHg). EKG was done which showed sinus rhythm. Tropes were negative. CBC and BMP was unremarkable except for lipase which was high- 95. Chest x-ray shows 'Mild cardiomegaly and pulmonary vascular congestion'. Patient was given furosemide 40 mg IV once and Lopressor 5 mg IV once. He requires admission for further workup and monitoring given his continued chest pain, hypertensive urgency and history of heart failure. Critical Care Note Critical Care Time?: Yes (35 min-critical care time only) Critical care comment: Due to a high probability of clinically significant, life threatening deterioration, the patient required my highest level of preparedness to intervene emergently and I personally spent this critical care time directly and personally managing the patient. This critical care time included obtaining a history; examining the patient; pulse oximetry; ordering and review of studies; arranging urgent treatment with development of a management plan; evaluation of patient's response to treatment; frequent reassessment; and, discussions with other providers. This critical care time was performed to assess and manage the high probability of imminent, life-threatening deterioration that could result in multi-organ failure. It was exclusive of separately billable procedures and treating other patients and teaching time. Please see my other sections and the rest of the note for further information on patient assessment and treatment. Stability Stability form required: No Heart Score Heart Score: Heart Score Response (Comments) Value History Slightly Suspicious 0 EKG Normal 0 Age 45-64 1 Risk Factors 1 or 2 risk factors 1 Troponin Normal limit 0 Total 2 LIZ GROVER RESIDENT Jan 21, 2025 21:51 ROMMEL GREENE DO Jan 21, 2025 22:28
[2025-01-21 22:00] LABS: Hematocrit 35.0 % (41.0-53.0); Hemoglobin 11.5 g/dL (13.5-17.5); Mean Corpuscular Hemoglobin 26.3 pg (28.0-32.0); Mean Corpuscular Volume 79.9 fL (80.0-100.0); Nucleated Red Blood Cells % 0.2 %
--- NOTE | 2025-01-21 22:02 | DVH ---
CHEST RADIOGRAPH Indication: chest pain Technique: Single frontal view of the chest was obtained COMPARISON: CHEST WITHOUT CONTRAST on DOS: 07/25/21, CHEST PORTABLE on DOS: 07/24/21, CXRP on DOS: 07/24/21 FINDINGS: Cardiac silhouette is mildly enlarged. Mild diffuse prominence of the pulmonary vasculature. No dense focal airspace disease. No significant pleural effusions or pneumothorax. Bones and soft tissues demonstrate no significant abnormality. IMPRESSION: Mild cardiomegaly and pulmonary vascular congestion.
[2025-01-21 22:16] LABS: Alanine Aminotransferase 21 U/L (7-40); Albumin 3.8 g/dL (3.2-4.8); Alkaline Phosphatase 84 U/L (46-116); Anion Gap 9 (5-15); BUN/Creatinine Ratio 11.4 (10.0-20.0); Bilirubin, Total 0.2 mg/dL (0.2-1.0); Blood Urea Nitrogen 14 mg/dL (9-23); Calcium 8.9 mg/dL (8.7-10.4); Carbon Dioxide 25 mmol/L (20-31); Chloride 102 mmol/L (98-107); Glucose 99 mg/dL (74-106); Potassium 3.9 mmol/L (3.5-5.1); Sodium 136 mmol/L (136-145); Total Protein 8.7 g/dL (5.7-8.2)
[2025-01-21] MEDS: FUROSEMIDE 40 MG/4 ML VIAL IV ONE (22:48)
[2025-01-21] MEDS: METOPROLOL TARTRATE 1MG/1ML-5ML VIAL IV ONE (22:58)
--- NOTE | 2025-01-21 23:11 | DVHHPRES ---
History of Present Illness Resident Creating Document: SENDY DEL VALLE RESIDENT History of Present Illness This is a 44-year-old male with a PMH of developmental delay, autism, hypertension, CHF ( 07/25/2021- HFpEF 73%), colitis, GERD, hypokalemia, COVID, nephrolithiasis, cholelithiasis, chronic pancreatitis and morbid obesity BIBEMS due to chest pain for one day, pressure-like sensation intermittent, no radiation, retrosternal, pain reproducible on chest compression, no relieving factor. Patient denies any SOB, cough, headache, nausea, vomiting, abdominal pain, dysuria or any focal weakness. Called Mary Mcnulty -aunt([phone]) who lives with him but unable to reach. Patient blood pressure 165/121 during brought by EMS and in ER, patient received nitroglycerin BP become 154/86. CT chest on 07/22: 5 mm noncalcified left lower lobe nodule. Past medical history: As above Past surgical history: Cholecystectomy Family: Nothing contributing Social history: Denies any smoking, EtOH or illicit drug use. Lives with aunt. PCP: Calvin Reynoso. Allergy: No known allergy home medication; lidocaine patch, furosemide, vitamin-D, divalproex, KCl, ferrous sulfate, Lopressor. Review of Systems Constitutional: Yes: Malaise; No: Fever, Chills, Sweats, Weakness, Other Eyes: No: Pain, Vision change, Conjunctivae inflammation, Eyelid inflammation, Other, Redness ENT: No: Ear pain, Ear discharge, Nose pain, Nose discharge, Nose congestion, Mouth pain, Mouth swelling, Throat pain, Throat swelling, Other Respiratory: No: Cough, Dry, Shortness of breath, SOB with excertion, Wheezing, Hemoptysis, Pleuritic Pain, Sputum, Wheezing, Other Cardiovascular: Chest Pain; No: Palpitations, Orthopnea, Paroxysmal Noc. Dyspnea, Edema, Lt Headedness, Other Gastrointestinal: No: Nausea, Vomiting, Abdominal Pain, Diarrhea, Constipation, Melena, Hematochezia, Other Genitourinary: No Dysuria, No Frequency, No Incontinence, No Hematuria, No Retention, No Other Musculoskeletal: No: other, neck pain, shoulder pain, arm pain, back pain, hand pain, leg pain, foot pain Skin: No: Rash, Lesions, Jaundice, Bruising, Other Neurological: No: Weakness, Numbness, Incoordination, Change in speech, Confusion, Seizures, Other Allergies: Coded Allergies: NO KNOWN ALLERGIES (Unverified , 07/16/20) Medications Current Medications Medications Dose Ordered Sig/Bina Route Start Time Stop Time Status Last Admin Dose Admin Nitroglycerin 0.4 mg Q5MINP PRN SL 01/21/25 23:15 Morphine Sulfate 2 mg Q30M PRN IV 01/21/25 23:15 Exam Vital Signs Vital Signs Date Time Temp Pulse Resp B/P (MAP) Pulse Ox O2 Delivery O2 Flow Rate FiO2 01/21/25 22:48 148/88 01/21/25 21:48 98.4 85 23 98 98.4 01/21/25 21:48 Room Air* 0 21 General Appearance: Alert, Oriented X3, No acute distress, mild distress, Other (Obese appearance) HEENT: Atraumatic, PERRLA, EOMI Respiratory: Clear to auscultation, Normal air movement Cardiovascular: Regular rate, Normal S1, Normal S2, No murmurs Abdominal: Normal bowel sounds, Soft, No tenderness, No masses Extremities: No clubbing, No cyanosis, No edema, Normal pulses Skin: No breakdown Neuro: Normal gait, Normal speech, Strength at 5/5 X4 ext, Sensation intact Psych/Mental Status: Other (Developmental delay) Labs/Xrays Labs Test 01/21/25 22:39 01/21/25 21:40 Range/Units Troponin I High Sensitivity 7 </=54 ng/L White Blood Count 7.8 4.4-10.8 10^3/uL Red Blood Count 4.38 L 4.5-5.90 10^6/uL Hemoglobin 11.5 L 13.5-17.5 g/dL Hematocrit 35.0 L 41.0-53.0 % Mean Corpuscular Volume 79.9 L 80.0-100.0 fL Mean Corpuscular Hemoglobin 26.3 L 28.0-32.0 pg Mean Corpuscular Hemoglobin Concent 32.9 32.0-36.0 g/dL Red Cell Distribution Width 14.1 11.8-14.3 % Platelet Count 453 H 140-450 10^3/uL Mean Platelet Volume 7.3 6.9-10.8 fL Neutrophils (%) (Auto) 65.7 37.0-80.0 % Lymphocytes (%) (Auto) 23.0 10.0-50.0 % Monocytes (%) (Auto) 7.0 0.0-12.0 % Eosinophils (%) (Auto) 3.5 0.0-7.0 % Basophils (%) (Auto) 0.8 0.0-2.0 % Neutrophils # (Auto) 5.1 1.6-8.6 10 ^3/uL Lymphocytes # (Auto) 1.8 0.4-5.4 10 ^3/uL Monocytes # (Auto) 0.5 0-1.3 10 ^3/uL Eosinophils # (Auto) 0.3 0-0.8 10 ^3/uL Basophils # (Auto) 0.1 0-0.2 10 ^3/uL Nucleated Red Blood Cells 0.2 % Sodium Level 136 136-145 mmol/L Potassium Level 3.9 3.5-5.1 mmol/L Chloride Level 102 98-107 mmol/L Carbon Dioxide Level 25 20-31 mmol/L Anion Gap 9 5-15 Blood Urea Nitrogen 14 9-23 mg/dL Creatinine 1.23 0.700-1.30 mg/dL Glomerular Filtration Rate Calc 73 >90 mL/min BUN/Creatinine Ratio 11.4 10.0-20.0 Serum Glucose 99 74-106 mg/dL Calcium Level 8.9 8.7-10.4 mg/dL Total Bilirubin 0.2 0.2-1.0 mg/dL Aspartate Amino Transferase (AST) 20 13-40 U/L Alanine Aminotransferase (ALT) 21 7-40 U/L Alkaline Phosphatase 84 46-116 U/L Total Protein 8.7 H 5.7-8.2 g/dL Albumin 3.8 3.2-4.8 g/dL Lipase 95 H 12-53 U/L SEPSIS Sepsis Screen Date sepsis recognized/suspect: Jan 21, 2025 Time Sepsis recognized/suspect: 2147 Recent Procedure: No On Antibiotic Therapy: No Respiratory Rate >20: No Heart Rate >90: No Temp<36 C (96.8 F) or >38.3 C: No SBP <90 or MAP <65 mmHG: No New Acute Mental Status Change: No Is the patient on CPAP, BIPAP,: No Physician Orders Chest Portable (01/21/25 21:21) Troponin-I Hs (01/22/25 00:21) Electrocardigram (01/21/25 22:21) Electrocardigram (01/22/25 00:21) Admit (01/21/25 23:02) Nitroglycerin Sublingual (Ntrostat Subli (01/21/25 23:15) Morphine Sulfate Injection (01/21/25 23:15) Block Cableman For 24 Hours (01/21/25 23:02) Emergency Dysrhythmia Protocol (01/21/25 23:02) Rhythm Strips Once Every Shift (01/21/25 23:02) Ct Ab Pel Wo Con-No Oral Or Iv (01/21/25 23:02) Notify Md Of Changes From Base (01/21/25 23:02) B-Type Natriuretic Peptide (01/21/25 23:06) Vital Signs Date Time Temp Pulse Resp B/P (MAP) Pulse Ox O2 Delivery O2 Flow Rate FiO2 01/21/25 22:48 148/88 01/21/25 21:48 98.4 85 23 151/86 (107) 98 98.4 01/21/25 21:48 Room Air* 0 21 01/21/25 21:25 98.6 86 18 154/86 97 98.6 01/21/25 21:23 92 Laboratory Tests Test 01/21/25 21:40 White Blood Count 7.8 10^3/uL (4.4-10.8) Medications Medications Dose Ordered Sig/Bina Route Start Time Stop Time Status Last Admin Dose Admin Furosemide 40 mg ONCE ONCE IV 01/21/25 21:45 01/21/25 21:46 DC 01/21/25 22:48 40 MG Assessment/Plan Assessment/Plan Chest pain rule out ACS Likely costochondritis Chronic systolic/diastolic heart failure Hypertensive urgency Essential hypertension Cardiomegaly During admission, patient blood pressure 165/121 and repeat 154/86 In ER patient received furosemide, metoprolol CXR- mild cardiomegaly and pulmonary vascular congestion EKG: sinus rhythm, likely left atrial enlargement with LVH, HR 82, QTC 438 Echo on 07/22- LVEF. 70%, no wall motion abnormality. Troponin 6> 7 , BNP 21.98 Aspirin Atorvastatin Metoprolol Furosemide Echo Pain management Acute pancreatitis Lipase 90 CT abdomen pelvis without contrast- increased bulk of pancreas suggestive of acute pancreatic NPO except med IVF Pain management Microcytic hypochromic anemia hemoglobin 11.5, HCT 35.0, MCV 79.9 Thrombocytosis likely reactive platelet count 453, follow CBC GISELL due to vasomotor nephropathy IVF avoid nephrotoxic drugs Hyperparathyroidism PTH 160 on on 01/2015 repeat PTH level Lung nodule CT chest on 07/22: 5 mm noncalcified left lower lobe nodule. OUTPATIENT FOLLOW-UP Diet: Cardiac GI prophylaxis: Pantoprazole DVT prophylax: Lovenox Goals of care discussion. More than 29 minute spent. Full code status. Primary team we will call next of kin for code status, continue full code. Case discussed with Dr. Hanna. Plan discussed with: Patient, Other (Nurse) My Orders Orders - SENDY DEL VALLE Procedure Category Date Status Time Admit ADMIT 01/21/25 Transmitted 23:02 Nitroglycerin PHA 01/21/25 In Process Sublingual (Ntrostat 23:15 Morphine Sulfate PHA 01/21/25 In Process Injection 23:15 Block Cableman For KATE 01/21/25 In Process 24 Hours 23:02 Emergency Dysrhythmia KATE 01/21/25 In Process Protocol 23:02 Rhythm Strips Once KATE 01/21/25 In Process Every Shift 23:02 Ct Ab Pel Wo Con-No CT 01/21/25 Logged Oral Or Iv 23:02 Notify Of Changes KATE 01/21/25 In Process From Base 23:02 B-Type Natriuretic LAB 01/21/25 In Process Peptide 23:06 Date of Service: Jan 21, 2025 Billing Provider: JARROD HANNA MD Common Visit Codes: 16835-[id number] INP/OBS CARE (HIGH) Secondary Visit Codes: [id number] CARE PLAN 30 MINUTES SENDY DEL VALLE Jan 21, 2025 23:11
[2025-01-21] MEDS ORDERED: MORPHINE SULFATE INJ 2 MG/ml SYRG IV PRN (23:15)
[2025-01-21] MEDS ORDERED: NITROGLYCERIN 0.4 MG SL TAB SL PRN (23:15)
[2025-01-22] VITALS (10 sets, daily range): BP systolic 137–157; BP diastolic 85–111; PULSE 56–89; RESP 17–20; TEMP 97.3–98.3; O2SAT 94–96
--- NOTE | 2025-01-22 00:11 | DVH ---
Exam: CT CT AB PEL WO CON-NO ORAL OR IV History: Abdominal pain and elevated lipase Comparison Study: CT CT AB PEL WO CON-NO ORAL OR IV on DOS: 10/18/23, CT ABD PELVIS WO CONTRAST on DOS: 07/26/21, [facility] on DOS: 07/25/21 Technique: Multidetector spiral CT of the abdomen was performed from lung bases to pubic symphysis. Imaging was performed without IV contrast. Axial, coronal and sagittal multiplanar reformats were obtained from the axial data set by the technologist. Radiation Dose : 1. Abdomen/Pelvis: CTDIvol 27.62 mGy, DLP 1592.23 mGy*cm. Findings: Evaluation of solid organs is limited due to lack of intravenous contrast use. Lung Bases: No acute or significant lung base finding. Normal heart size. No pleural or pericardial effusion. Liver: The liver is normal in size. No focal lesions. Gallbladder and Biliary Tree: Gallbladder is surgically absent. Spleen: Unremarkable Pancreas: Pancreas appears slightly bulky. No significant surrounding edema. No focal fluid collections. Adrenal Glands: Unremarkable Kidneys: Kidneys are grossly normal without calculi or hydronephrosis. Bladder: Grossly unremarkable for degree of distention. Bowel: The stomach is grossly normal in appearance. Small bowel and colon are normal in caliber and distribution. The appendix is not visualized; however, no secondary findings of acute appendicitis identified. Ascites: Absent Lymphadenopathy: No mesenteric, retroperitoneal or periportal lymphadenopathy. Abdominal Wall and Mesentery: Unremarkable. Vasculature: The visualized abdominal aorta is normal in size and caliber. Evaluation of abdominal and pelvic vessels is limited due to lack of intravenous contrast. Pelvic Organs: Unremarkable Musculoskeletal: No aggressive focal bony lesions, acute fractures or dislocation. IMPRESSION: Pancreas is slightly bulky which may suggest mild acute pancreatitis. No focal fluid collections however. Please correlate with any supportive clinical and biochemical markers. Otherwise no acute abnormality. Radiation optimization: All CT scans at this facility use at least one of these dose optimization techniques: automated exposure control mA and/or kV adjustment per patient size (includes targeted exams where dose is matched to clinical indication) or iterative reconstruction.
[2025-01-22] MEDS: SODIUM CHLORIDE 0.9% 1,000 ML IV ONE (00:30)
[2025-01-22] MEDS: METOPROLOL TARTRATE 50 MG TAB PO ONE (00:35)
[2025-01-22] MEDS ORDERED: KETOROLAC TROMETH 30 MG/ML 1ML VIAL IV PRN (00:45)
[2025-01-22] MEDS ORDERED: PANTOPRAZOLE 40 MG TAB PO ONE (06:01)
[2025-01-22] MEDS: PANTOPRAZOLE 40 MG TAB PO SCH (06:36)
[2025-01-22 07:11] LABS: Hemoglobin 12.2 g/dL (13.5-17.5); Mean Corpuscular Hemoglobin 26.0 pg (28.0-32.0); Mean Corpuscular Volume 80.0 fL (80.0-100.0); Nucleated Red Blood Cells % 0.2 %
[2025-01-22 07:14] LABS: Hematocrit 37.5 % (41.0-53.0)
[2025-01-22 07:26] LABS: Anion Gap 9 (5-15); Carbon Dioxide 27 mmol/L (20-31); Chloride 103 mmol/L (98-107); Potassium 3.8 mmol/L (3.5-5.1); Sodium 139 mmol/L (136-145)
[2025-01-22 07:27] LABS: Calcium 9.3 mg/dL (8.7-10.4)
[2025-01-22 07:32] LABS: BUN/Creatinine Ratio 13.7 (10.0-20.0); Blood Urea Nitrogen 13 mg/dL (9-23); Glucose 84 mg/dL (74-106); Triglycerides 64 mg/dL (< 150)
[2025-01-22 07:34] LABS: Cholesterol 160 mg/dL (< 200); HDL Cholesterol 44 mg/dL (40-59)
[2025-01-22 08:52] LABS: Uric Acid 9.3 mg/dL (3.7-9.2)
[2025-01-22] MEDS: FUROSEMIDE 20 MG TAB PO SCH (10:35)
[2025-01-22] MEDS: ASPirin-EC 81 mg tab PO SCH (10:36)
[2025-01-22] MEDS: METOPROLOL SUCCINATE XL 50 MG TAB PO SCH (10:36)
--- NOTE | 2025-01-22 11:24 | DVHPN2 ---
Reviewed: Care Plan, H&P, Labs, Medications, Previous Orders, Radiology Changes from previous H/P or p: No Changes Eyes: No Pain, No Vision change, No Conjunctivae inflammation, No Eyelid inflammation, No Other, No Redness ENT: No Ear pain, No Ear discharge, No Nose pain, No Nose discharge, No Nose congestion, No Mouth pain, No Mouth swelling, No Throat pain, No Throat swelling, No Other Cardiovascular: Chest Pain; No Palpitations, No Orthopnea, No Paroxysmal Noc. Dyspnea, No Edema, No Lt Headedness, No Other Respiratory: No Cough, No Dry, No Shortness of breath, No SOB with excertion, No Wheezing, No Hemoptysis, No Pleuritic Pain, No Sputum, No Other Gastrointestinal: No Nausea, No Vomiting, No Abdominal Pain, No Diarrhea, No Constipation, No Melena, No Hematochezia, No Other Genitourinary: No Dysuria, No Frequency, No Incontinence, No Hematuria, No Retention, No Other Musculoskeletal: No other, No neck pain, No shoulder pain, No arm pain, No back pain, No hand pain, No leg pain, No foot pain Skin: No Rash, No Lesions, No Jaundice, No Bruising, No Other Objective Vitals Vital Signs Date Time Temp Pulse Resp B/P (MAP) Pulse Ox O2 Delivery O2 Flow Rate FiO2 01/22/25 10:36 74 137/94 01/22/25 09:00 97.8 18 95 97.8 01/22/25 02:08 Room Air* 0 21 Intake/Output Intake and Output 01/22/25 07:00 Intake Total 0 ml Balance 0 ml Intake Oral 0 ml Medications Current Medications Medications Dose Ordered Sig/Bina Route Start Time Stop Time Status Last Admin Dose Admin Nitroglycerin 0.4 mg Q5MINP PRN SL 01/21/25 23:15 Morphine Sulfate 2 mg Q30M PRN IV 01/21/25 23:15 Aspirin 81 mg DAILY PO 01/22/25 10:00 01/22/25 10:36 81 MG Atorvastatin Calcium 40 mg HS PO 01/22/25 22:00 Furosemide 20 mg DAILY PO 01/22/25 10:00 01/22/25 10:35 20 MG Metoprolol Succinate 50 mg DAILY PO 01/22/25 10:00 01/22/25 10:36 50 MG Ketorolac Tromethamine 15 mg Q6HPRN PRN IV 01/22/25 00:45 01/27/25 00:44 Pantoprazole Sodium 40 mg DAILY@0600 PO 01/22/25 06:00 01/22/25 06:36 40 MG Laboratory Results Laboratory Tests 01/22/25 06:29 Chemistry Test 01/21/25 21:40 01/22/25 06:29 Albumin 3.8 g/dL (3.2-4.8) Calcium Level 8.9 mg/dL (8.7-10.4) 9.3 mg/dL (8.7-10.4) Total Protein 8.7 g/dL (5.7-8.2) H Lipid panel Test 01/21/25 21:40 01/22/25 06:29 Lipase 95 U/L (12-53) H Cholesterol Level 160 mg/dL (< 200) HDL Cholesterol 44 mg/dL (40-59) Triglycerides Level 64 mg/dL (< 150) Cardiac Markers Test 01/21/25 21:40 B-Type Natriuretic Peptide 21.98 pg/mL (0-100) LFT Test 01/21/25 21:40 Alanine Aminotransferase (ALT) 21 U/L (7-40) Alkaline Phosphatase 84 U/L (46-116) Aspartate Amino Transferase (AST) 20 U/L (13-40) Total Bilirubin 0.2 mg/dL (0.2-1.0) HgA1c, TSH Test 01/22/25 06:29 Hemoglobin A1c 5.1 % A1C (<5.7) Thyroid Stimulating Hormone (TSH) 3.76 uIU/mL (0.55-4.78) Labs and/or images reviewed: Labs reviewed by me, Image(s) reviewed by me Assessment/Plan Assessment/Plan Chest pain rule out ACS treatment per ACS protocol, consult for Dr. Aguilera Likely costochondritis Chronic systolic/diastolic heart failure: Lasix Hypertensive urgency Essential hypertension Cardiomegaly Acute pancreatitis lipase 90 History of chronic pancreatitis Anemia History of kidney stones Thrombocytosis GISELL versus IPMN Hyperparathyroidism Autism Developmental delay Time Spent 50 minutes JOÃO maynard at bedside Plan discussed with: Patient Date of Service: Jan 22, 2025 Billing Provider: WALT HERNANDEZ MD Common Visit Codes: [id number] INP/OBS CARE(HIGH) WALT HERNANDEZ MD Jan 22, 2025 11:24
--- NOTE | 2025-01-22 14:41 | DVHINCON2 ---
Date Seen: Jan 22, 2025 Referring Physician MD Tray Reason for Consultation Chest pain History of Present Illness This is a 44-year-old male patient who presents to emergency room with chief complaint of chest pain. The patient reports that the chest pain began last night. The patient is developmentally delayed and autistic and therefore is not the best historian. Called and spoke with the patient's caregiver/aunt Mary for more history. She states that the patient began complaining of chest pain while eating dinner which consisted of fried chicken, gravy, and potatoes. She reports that she became concerned and she called EMS. The patient was brought to this facility for further evaluation. Given the patient's developmental delay, he has a difficult time describing the chest pain. He was not able to state if it was provoked or unprovoked, but does describe that it was intermittent and midsternal. He denies any radiation to any other areas, but does point at epigastric area upon assessment. Initial twelve lead electrocardiogram reveals normal sinus rhythm without any significant ST segment changes and left ventricular hypertrophy. Initial troponin level of 6ng/L flat trend thereafter. Significant past medical history includes hypertension, developmental delay, autism, and morbid obesity. The patient mentions that he was seen by a sales enablement consultant before but never underwent any procedures. He does mention that he recently ran out of his antihypertensive medications approximately one week ago. Past Medical History Past medical history reviewed. No other significant than mentioned above. Past Surgical History Cholecystectomy Family History: Patient reports no known family medical history. Family History Family history reviewed. Social History Denies the use of tobacco, alcohol or illicit drugs. Allergies: Coded Allergies: NO KNOWN ALLERGIES (Unverified , 07/16/20) Home Meds Active Scripts Pantoprazole Sodium Sesquihydr (Pantoprazole Sodium) 40 Mg Tab, 40 MG PO DAILY, #30 TAB Prov:WALT HERNANDEZ MD 10/21/23 Metronidazole (Flagyl) 500 Mg Tab, 1 TAB PO TID, #30 TAB Prov:WALT HERNANDEZ MD 10/21/23 Levofloxacin Hemihydrate (LEVAQUIN 500 MG) 500 Mg Tab, 1 TAB PO DAILY, #7 TAB Prov:WALT HERNANDEZ MD 10/21/23 Amoxicillin Trihydrate (Amoxicillin) 500 Mg Tab, 1 TAB PO BID for 10 Days, #20 TAB 0 Refills Prov:GEORGI CARRILLO VOLUNTEER SPECIALIST 10/13/23 Reported Medications Ergocalciferol (VITAMIN D 32722 UNIT) 50,[address] [place], [address] UNIT PO, CAP 01/22/25 Furosemide (Lasix) 40 Mg Tab, 40 MG PO DAILY, TAB 01/22/25 Potassium Chloride (POTASSIUM CHLORIDE CR) 10 Meq Tb, 10 MEQ PO BID, TAB 01/22/25 Home Meds Home medications reviewed. Current Medications Current Medications Medications (Trade) Dose Ordered Sig/Bina Route PRN Reason Start Time Stop Time Status Last Admin Nitroglycerin (Ntrostat Sublingual) 0.4 mg Q5MINP PRN SL FOR CHEST PAIN 01/21/25 23:15 Morphine Sulfate 2 mg Q30M PRN IV FOR CHEST PAIN 01/21/25 23:15 Aspirin (Ecotrin Enteric Coated Tablet) 81 mg DAILY PO 01/22/25 10:00 01/22/25 10:36 Atorvastatin Calcium (Lipitor) 40 mg HS PO 01/22/25 22:00 Furosemide (Lasix Tablet) 20 mg DAILY PO 01/22/25 10:00 01/22/25 10:35 Metoprolol Succinate (Toprol Xl) 50 mg DAILY PO 01/22/25 10:00 01/22/25 10:36 Ketorolac Tromethamine (Toradol Injection) 15 mg Q6HPRN PRN IV MODERATE PAIN (4-6 PAIN SCALE) 01/22/25 00:45 01/27/25 00:44 Pantoprazole Sodium (Protonix Tablet) 40 mg DAILY@0600 PO 01/22/25 06:00 01/22/25 06:36 Review of Systems Constitutional: No symptom reported Ears, Nose, & Throat: No symptom reported Eyes: No symptom reported Neurological: No symptoms reported Pulmonary/Respiratory: No symptoms reported Cardiovascular: Chest pain Gastrointestinal: No symptom reported Genitourinary: No symptom reported Musculoskeletal: No symptom reported Skin: No symptom reported Psychiatric: No symptom reported Endocrine: No symptom reported Hematologic/Lymphatic: No symptom reported Vital Signs Vital Signs Date Time Temp Pulse Resp B/P (MAP) Pulse Ox O2 Delivery O2 Flow Rate FiO2 01/22/25 12:30 97.3 65 17 157/111 (126) 94 97.3 01/22/25 08:00 Room Air* 0 21 Physical Exam General Appearance: Cooperative. Morbidly obese Pulmonary/Respiratory: Clear, bilateral breaths sounds. Cardiovascular/Chest: Regular rate and rhythm. Peripheral Pulses: 2+ Radial (R). 2+ Radial (L). 2+ Pedal (R). 2+ Pedal (L) Abdominal Exam: Normal bowel sounds. Ankle Exam: Negative ankle edema Lower extremities: Negative lower extremity edema Neuro/Mental Status: A/OX4, coherent. Thoughts/Psych: Normal thought pattern. Appropriate mood and affect. Good judgment and insight. Appearance: No acute distress. Skin Exam: Normal inspection. Normal color. Warm and dry. Labs/Diagnostic Data Labs Test 01/22/25 06:29 01/22/25 01:15 01/21/25 21:40 Range/Units White Blood Count 5.4 # 4.4-10.8 10^3/uL Red Blood Count 4.68 4.5-5.90 10^6/uL Hemoglobin 12.2 L 13.5-17.5 g/dL Hematocrit 37.5 L 41.0-53.0 % Mean Corpuscular Volume 80.0 80.0-100.0 fL Mean Corpuscular Hemoglobin 26.0 L 28.0-32.0 pg Mean Corpuscular Hemoglobin Concent 32.5 32.0-36.0 g/dL Red Cell Distribution Width 14.2 11.8-14.3 % Platelet Count 491 H 140-450 10^3/uL Mean Platelet Volume 7.3 6.9-10.8 fL Neutrophils (%) (Auto) 57.5 37.0-80.0 % Lymphocytes (%) (Auto) 29.1 10.0-50.0 % Monocytes (%) (Auto) 9.0 0.0-12.0 % Eosinophils (%) (Auto) 3.8 0.0-7.0 % Basophils (%) (Auto) 0.6 0.0-2.0 % Neutrophils # (Auto) 3.1 1.6-8.6 10 ^3/uL Lymphocytes # (Auto) 1.6 0.4-5.4 10 ^3/uL Monocytes # (Auto) 0.5 0-1.3 10 ^3/uL Eosinophils # (Auto) 0.2 0-0.8 10 ^3/uL Basophils # (Auto) 0 0-0.2 10 ^3/uL Nucleated Red Blood Cells 0.2 % Sodium Level 139 136-145 mmol/L Potassium Level 3.8 3.5-5.1 mmol/L Chloride Level 103 98-107 mmol/L Carbon Dioxide Level 27 20-31 mmol/L Anion Gap 9 5-15 Blood Urea Nitrogen 13 9-23 mg/dL Creatinine 0.95 0.700-1.30 mg/dL Glomerular Filtration Rate Calc 100 >90 mL/min BUN/Creatinine Ratio 13.7 10.0-20.0 Serum Glucose 84 74-106 mg/dL Hemoglobin A1c 5.1 <5.7 % A1C Uric Acid 9.3 H 3.7-9.2 mg/dL Calcium Level 9.3 8.7-10.4 mg/dL Triglycerides Level 64 < 150 mg/dL Cholesterol Level 160 < 200 mg/dL LDL Cholesterol 106 H < 100 mg/dL HDL Cholesterol 44 40-59 mg/dL Vitamin D 25-Hydroxy 51.3 30.0-100 ng/mL Thyroid Stimulating Hormone (TSH) 3.76 0.55-4.78 uIU/mL Troponin I High Sensitivity 6 </=54 ng/L Total Bilirubin 0.2 0.2-1.0 mg/dL Aspartate Amino Transferase (AST) 20 13-40 U/L Alanine Aminotransferase (ALT) 21 7-40 U/L Alkaline Phosphatase 84 46-116 U/L B-Type Natriuretic Peptide 21.98 0-100 pg/mL Total Protein 8.7 H 5.7-8.2 g/dL Albumin 3.8 3.2-4.8 g/dL Lipase 95 H 12-53 U/L Assessment Questionable chest pain Possible acute pancreatitis Hypertensive urgency Developmental delay Autism Morbid obesity Plan/Recommendation We will continue with the following plan/recommendations (Dr. Aguilera): * Transthoracic echocardiogram reveals an EF of 65% without wall motion abnormalities * Chest pain protocol * HEART score: 3 points (low score) * Aggressive blood pressure control * Close Cardiac surveillance Case discussed with Dr. Aguilera in full detail. Given patient clinical presentation, unremarkable twelve lead electrocardiogram, and negative troponin level, doubt ACS. At this time, no urgent need for cardiac workup. Patient most likely has underlying acute pancreatitis. The patient may benefit from outpatient stress test if deemed necessary. There is no further inpatient cardiac workup indicated at this time, please feel free to reconsult Cardiology if needed. Thank you for allowing us to care for this patient. Please call with any questions or concerns. Critical care time spent: 44 minutes This medical document was created using an electronic medical record system with voice recognition software and computerized dictation system. Although this document has been carefully reviewed, there might still be some phonetic and typographical errors. Occasional wrong-word or ``sound-alike substitutions may have occurred due to the inherent limitations of voice recognition software. These areas are purely typographical due to imperfections of the software programs and do not reflect any compromise in the patient's medical care. Please read the chart carefully and recognize, using context, where these substitutions have occurred. Plan discussed with: Patient NYHA Physical activity limitations: NA Date of Service: Jan 22, 2025 Billing Provider: CHERELLE BATRES Cardiology Common Codes: [id number] INP/OBS CARE (High) Cardiology Consultation Codes: [id number] CONSULT <45MIN CHERELLE BATRES Jan 22, 2025 14:41
--- NOTE | 2025-01-22 16:40 | DVHSR ---
APPROVED REPORT EXAM: Two-dimensional and M-mode echocardiogram with Doppler and color Doppler. Blood Pressure: 142/89 mmHg INDICATION chest pain to rule out heart failure RISK FACTORS Obesity: Height: 66, Weight: 356 DIMENSIONS LVDd 4.4 (3.8-5.7cm) LA (2D) 5.0 (1.9-4.0cm) Aortic Root 3.1 (2.0-3.7cm) LVDs 2.8 (2.5-4.0cm) LA (MM) (1.9-4.0cm) Aortic Cusp Exc 1.9 (1.5-2.0cm) EF (%) 67.0 (55-70%) Rt. Atrium 3.0 (1.9-4.0cm) Asc. Aorta cm IVSd 1.5 (0.7-1.1cm) RV (D) 4.0 (1.8-2.4cm) PWd 1.5 (0.7-1.1cm) Mitral Valve Mitral Mitral Stenosis E wave 1.25m/s MV Mean GR. mmHg A wave 1.17m/s MV Peak GR. 44mmHg E/A ratio 1.1 2D MVA cm2 DECEL Time 278ms PRESS 1/2 Time ms Aortic Valve Aortic Valve Aortic Stenosis V1 1.28m/s AO Mean GR. 8mmHg V2 1.84m/s AO Peak GR. 14mmHg LVOT Diameter 2.0 (1.8-2.4cm) Doppler JOSE ENRIQUE 2.18cm2 Pulmonic Valve V2 1.36m/s Tricuspid Valve TR Velocity 2.54m/s RVSP 34mmHg Other Information Technically limited study due to body habitus. Conclusion Technically good study. There was a sinus rhythm. Concentric LVH. Left atrial enlargement. Mild mitral annular calcification at the base of the posterior mitral leaflet with mild thickening. No significant diminished excursion of the leaflets. The aortic tricuspid and pulmonic normal. Left ventricular function is preserved at 65% with normal RV function. Doppler reveals no significant regurgitant jets. Mild pulmonic insufficiency. No pericardial effusion masses or vegetations.
[2025-01-22] MEDS ORDERED: FURO1TAB31 PO (18:02)
[2025-01-22] MEDS ORDERED: POTA-36 PO (18:02)
[2025-01-22] MEDS ORDERED: ERGO1CAP23 PO (18:02)
[2025-01-22] MEDS ORDERED: ATORVASTATIN 20 MG TAB ONE (22:06)
[2025-01-22] MEDS: ATORVASTATIN 20 MG TAB PO SCH (22:09)
[2025-01-23 01:00] VITALS: BP 137/90; PULSE 78; RESP 19; TEMP 98.1; O2SAT 96
[2025-01-23 05:00] VITALS: BP 156/90; PULSE 89; RESP 17; TEMP 98; O2SAT 100
[2025-01-23] MEDS ORDERED: PANTOPRAZOLE 40 MG TAB PO ONE (05:45)
[2025-01-23 08:00] VITALS: PULSE 69; PULSE 84; RESP 18; O2SAT 95
[2025-01-23 08:30] VITALS: BP 126/95; PULSE 69; RESP 18; TEMP 98; O2SAT 94
[2025-01-23] MEDS ORDERED: FUROSEMIDE 20 MG TAB ONE (09:27)
[2025-01-23] MEDS ORDERED: METOPROLOL TARTRATE 50 MG TAB ONE (09:27)
[2025-01-23] MEDS ORDERED: METOPROLOL SUCCINATE XL 50 MG TAB PO ONE (09:37)
[2025-01-23] MEDS ORDERED: ASPirin-EC 81 mg tab PO ONE (09:37)
--- NOTE | 2025-01-23 11:26 | DVHPN2 ---
Reviewed: Care Plan, H&P, Labs, Medications, Previous Orders, Radiology Changes from previous H/P or p: No Changes Eyes: No Pain, No Vision change, No Conjunctivae inflammation, No Eyelid inflammation, No Other, No Redness ENT: No Ear pain, No Ear discharge, No Nose pain, No Nose discharge, No Nose congestion, No Mouth pain, No Mouth swelling, No Throat pain, No Throat swelling, No Other Cardiovascular: Chest Pain; No Palpitations, No Orthopnea, No Paroxysmal Noc. Dyspnea, No Edema, No Lt Headedness, No Other Respiratory: No Cough, No Dry, No Shortness of breath, No SOB with excertion, No Wheezing, No Hemoptysis, No Pleuritic Pain, No Sputum, No Other Gastrointestinal: No Nausea, No Vomiting, No Abdominal Pain, No Diarrhea, No Constipation, No Melena, No Hematochezia, No Other Genitourinary: No Dysuria, No Frequency, No Incontinence, No Hematuria, No Retention, No Other Musculoskeletal: No other, No neck pain, No shoulder pain, No arm pain, No back pain, No hand pain, No leg pain, No foot pain Skin: No Rash, No Lesions, No Jaundice, No Bruising, No Other Objective Vitals Vital Signs Date Time Temp Pulse Resp B/P (MAP) Pulse Ox O2 Delivery O2 Flow Rate FiO2 01/23/25 09:38 69 126/95 01/23/25 08:30 98.0 18 94 98.0 01/23/25 08:00 Room Air* 0 21 Intake/Output Intake and Output 01/23/25 07:00 Intake Total 1550 ml Balance 1550 ml Intake Oral 1550 ml # Voids 8 # Bowel Movements 4 Medications Current Medications Medications Dose Ordered Sig/Bina Route Start Time Stop Time Status Last Admin Dose Admin Nitroglycerin 0.4 mg Q5MINP PRN SL 01/21/25 23:15 Morphine Sulfate 2 mg Q30M PRN IV 01/21/25 23:15 Aspirin 81 mg DAILY PO 01/22/25 10:00 01/23/25 09:39 81 MG Atorvastatin Calcium 40 mg HS PO 01/22/25 22:00 01/22/25 22:09 40 MG Furosemide 20 mg DAILY PO 01/22/25 10:00 01/23/25 09:38 20 MG Metoprolol Succinate 50 mg DAILY PO 01/22/25 10:00 01/23/25 09:38 50 MG Ketorolac Tromethamine 15 mg Q6HPRN PRN IV 01/22/25 00:45 01/27/25 00:44 Pantoprazole Sodium 40 mg DAILY@0600 PO 01/22/25 06:00 01/23/25 05:47 40 MG Laboratory Results Laboratory Tests 01/22/25 06:29 Labs and/or images reviewed: Labs reviewed by me, Image(s) reviewed by me Assessment/Plan Assessment/Plan Noncardiac chest pain, troponin negative, echo 65 % ejection fraction, cardiology consult by Dr. Aguilera appreciated cleared for discharge Chronic systolic/diastolic heart failure: Lasix Hypertensive urgency Essential hypertension Cardiomegaly Acute pancreatitis lipase 90 History of chronic pancreatitis Anemia History of kidney stones Thrombocytosis GISELL versus IPMN Hyperparathyroidism Autism Developmental delay Time Spent 50 minutes JOÃO maynard at bedside Plan discussed with: Patient Date of Service: Jan 23, 2025 Billing Provider: WALT HERNANDEZ MD Common Visit Codes: [id number] INP/OBS CARE(HIGH) WALT HERNANDEZ MD Jan 23, 2025 11:26
[2025-01-23] MEDS ORDERED: HYDR-4902 PO (11:29)
[2025-01-23] MEDS ORDERED: PANT40T PO (11:29)
--- NOTE | 2025-01-23 11:32 | DVHDS2 ---
Discharge Summary Date of Admission Jan 21, 2025 at 23:02 Date of Discharge: Jan 23, 2025 Admitting Diagnosis Chest pain Wounds: None Labs/Diagnostic Data: Laboratory Results Test 01/22/25 06:29 01/22/25 01:15 01/21/25 21:40 White Blood Count 5.4 10^3/uL (4.4-10.8) Red Blood Count 4.68 10^6/uL (4.5-5.90) Hemoglobin 12.2 g/dL (13.5-17.5) Hematocrit 37.5 % (41.0-53.0) Mean Corpuscular Volume 80.0 fL (80.0-100.0) Mean Corpuscular Hemoglobin 26.0 pg (28.0-32.0) Mean Corpuscular Hemoglobin Concent 32.5 g/dL (32.0-36.0) Red Cell Distribution Width 14.2 % (11.8-14.3) Platelet Count 491 10^3/uL (140-450) Mean Platelet Volume 7.3 fL (6.9-10.8) Neutrophils (%) (Auto) 57.5 % (37.0-80.0) Lymphocytes (%) (Auto) 29.1 % (10.0-50.0) Monocytes (%) (Auto) 9.0 % (0.0-12.0) Eosinophils (%) (Auto) 3.8 % (0.0-7.0) Basophils (%) (Auto) 0.6 % (0.0-2.0) Neutrophils # (Auto) 3.1 10 ^3/uL (1.6-8.6) Lymphocytes # (Auto) 1.6 10 ^3/uL (0.4-5.4) Monocytes # (Auto) 0.5 10 ^3/uL (0-1.3) Eosinophils # (Auto) 0.2 10 ^3/uL (0-0.8) Basophils # (Auto) 0 10 ^3/uL (0-0.2) Nucleated Red Blood Cells 0.2 % Sodium Level 139 mmol/L (136-145) Potassium Level 3.8 mmol/L (3.5-5.1) Chloride Level 103 mmol/L (98-107) Carbon Dioxide Level 27 mmol/L (20-31) Anion Gap 9 (5-15) Blood Urea Nitrogen 13 mg/dL (9-23) Creatinine 0.95 mg/dL (0.700-1.30) Glomerular Filtration Rate Calc 100 mL/min (>90) BUN/Creatinine Ratio 13.7 (10.0-20.0) Serum Glucose 84 mg/dL (74-106) Hemoglobin A1c 5.1 % A1C (<5.7) Uric Acid 9.3 mg/dL (3.7-9.2) Calcium Level 9.3 mg/dL (8.7-10.4) Triglycerides Level 64 mg/dL (< 150) Cholesterol Level 160 mg/dL (< 200) LDL Cholesterol 106 mg/dL (< 100) HDL Cholesterol 44 mg/dL (40-59) Vitamin D 25-Hydroxy 51.3 ng/mL (30.0-100) Thyroid Stimulating Hormone (TSH) 3.76 uIU/mL (0.55-4.78) Troponin I High Sensitivity 6 ng/L (</=54) Total Bilirubin 0.2 mg/dL (0.2-1.0) Aspartate Amino Transferase (AST) 20 U/L (13-40) Alanine Aminotransferase (ALT) 21 U/L (7-40) Alkaline Phosphatase 84 U/L (46-116) B-Type Natriuretic Peptide 21.98 pg/mL (0-100) Total Protein 8.7 g/dL (5.7-8.2) Albumin 3.8 g/dL (3.2-4.8) Lipase 95 U/L (12-53) Other Laboratory Tests 01/22/25 06:29 Brief Hx & Hospital Course: 64-year-old male with a history of autism developmental delay kidney stones hypotension came in complaining of chest pain. Troponin negative x3 echo 65 percent ejection fraction treated per ACS protocol cardiology consult by Dr. Aguilera. Patient did lipase of 90 diagnosed with a acute pancreatitis patient has a history of chronic pancreatitis. Per Cardiology patient has noncardiac chest pain probably secondary to pancreatitis. At the time of discharge patient is afebrile stable vital signs. Discharged home on pantoprazole and Jordan he will follow up with his primary Dr Consults/Reason for consult Cardiology Dr. Aguilera Operations or Procedures Echocardiogram Condition at Discharge: Fair Final Diagnosis/Problems List Noncardiac chest pain, troponin negative, echo 65 % ejection fraction, cardiology consult by Dr. Aguilera appreciated Chronic systolic/diastolic heart failure: Lasix Hypertensive urgency Essential hypertension Cardiomegaly Acute pancreatitis lipase 90 History of chronic pancreatitis Anemia History of kidney stones Thrombocytosis GISELL versus IPMN Hyperparathyroidism Autism Developmental delay Discharge Disposition: Home Discharge Instruct/Medications Diet: Cardiac 2g Na,low cholest Activity: Light activity Follow Up/Referral: Resume all previous home medications Follow up with the primary dr Medications: Pantoprazole Jordan Transmitted to pharmacy Scheduled Amoxicillin Trihydrate (Amoxicillin), 1 TAB PO BID Furosemide (Lasix), 40 MG PO DAILY, (Reported) Levofloxacin Hemihydrate (Levaquin 500 Mg), 1 TAB PO DAILY Metronidazole (Flagyl), 1 TAB PO TID Pantoprazole Sodium Sesquihydr (Pantoprazole Sodium), 40 MG PO DAILY Pantoprazole Sodium Sesquihydr (Pantoprazole Sodium), 40 MG PO BID Potassium Chloride (Potassium Chloride Cr), 10 MEQ PO BID, (Reported) Scheduled PRN Hydrocodone-Acetaminophen (Hydrocodone Bitartrate/AC 5-325 mg), 1 TAB PO QID PRN Miscellaneous Medications Ergocalciferol (Vitamin D 41514 Unit), 50,000 UNIT PO, (Reported) 35 (Time taken for discharge summary 35 mts) Discharge Statement: "Patient was advised to return to the ER or call 911 if any headaches, dizziness, shortness of breath, chest pain, abdominal pain, bleeding, fevers, or worsening of medical condition. Patient was counseled about treatment plan, medications, possible side effects, patientverbalized understanding. All questions were answered to the best of my ability. This discharge took greater then 30 minutes in planning, reviewing documentation, counseling the patient, and discussing with other team members." ASSESSMENT ASSESSMENT Hospital Course Improved Assessment Noncardiac chest pain, troponin negative, echo 65 % ejection fraction, cardiology consult by Dr. Aguilera appreciated Chronic systolic/diastolic heart failure: Lasix Hypertensive urgency Essential hypertension Cardiomegaly Acute pancreatitis lipase 90 History of chronic pancreatitis Anemia History of kidney stones Thrombocytosis GISELL versus IPMN Hyperparathyroidism Autism Developmental delay Date of Service: Jan 23, 2025 Billing Provider: WALT HERNANDEZ MD Common Visit Codes: 46265-QKA/OBS DISCH DAY >30min WALT HERNANDEZ MD Jan 23, 2025 11:32
[2025-01-23 12:31] VITALS: BP 146/97; PULSE 75; RESP 18; TEMP 99.1; O2SAT 96
[2025-01-23 12:36] VITALS: BP 126/95; PULSE 69; TEMP 37.3
== END 2025-01-23 14:43 | disposition home or self-care (01) | DRG 203 ==
LOC: EDBD 21:14 → EDUNIT# 21:14 → ER 21:14 → OVERFLOW 23:02 → TELE-WESTW 23:47
PROVIDERS: ATTEND Internal Medicine
DX: M94.0 Chondrocostal junction syndrome [Tietze] (principal); N17.0 Acute kidney failure with tubular necrosis; K85.90 Acute pancreatitis without necrosis or infection, unspecified; I11.0 Hypertensive heart disease with heart failure; D64.9 Anemia, unspecified; E66.01 Morbid (severe) obesity due to excess calories; I16.0 Hypertensive urgency; I50.42 Chronic combined systolic (congestive) and diastolic (congestive) heart failure; D75.839 Thrombocytosis, unspecified; E21.3 Hyperparathyroidism, unspecified; F84.0 Autistic disorder; K21.9 Gastro-esophageal reflux disease without esophagitis; K86.1 Other chronic pancreatitis; R62.50 Unspecified lack of expected normal physiological development in childhood; Z90.49 Acquired absence of other specified parts of digestive tract; Z87.442 Personal history of urinary calculi; Z91.148 Patient's other noncompliance with medication regimen for other reason; Z68.43 Body mass index [BMI] 50.0-59.9, adult
CPT/HCPCS: 36415; 71045; 74176; 80048; 80053; 80061; 82306; 82607; 83036; 83690; 83880; 83970; 84443; 84484; 84550; 85025; 93005; 93306; 96374; 99291; G0378